=== PATIENT | male | born 1965 | race Caucasian/White ===

== ENCOUNTER 2018-03-11 05:15 | Day surgery (SDC) | payer OTHER ==
[~2018-03-11 05:15] MED LIST: MICARDIS80 MG PO
[2018-03-11] MEDS ORDERED: COLACE100 MG PO (10:04)
[2018-03-11] MEDS ORDERED: PERCOCET 5-3251 EACH PO (10:04)
== END 2018-03-11 13:10 | disposition home or self-care (01) ==
LOC: CIR.AMB 05:15
DX: K60.3 Anal fistula (principal)

== ENCOUNTER 2018-05-20 07:03 | Day surgery (SDC) | payer OTHER ==
[~2018-05-20 07:03] MED LIST changes: +COLACE100 MG PO; +PERCOCET 5-3251 EACH PO
[2018-05-20] MEDS ORDERED: PERCOCET 5-3251 EACH PO (07:58)
[2018-05-20] MEDS ORDERED: COLACE100 MG PO (07:58)
== END 2018-05-20 12:25 | disposition home or self-care (01) ==
LOC: CIR.AMB 07:03
DX: K60.3 Anal fistula (principal)